=== PATIENT | male | born 1970 | race Hispanic/Latino ===

== ENCOUNTER 2018-08-04 19:55 | Inpatient (IN) | payer BC ==
[2018-08-04 21:41] LABS: #Eosinphils 0.1 thou/uL (0.0-0.7); #Lymphocytes 1.8 thou/uL (1.20-3.40); #Monocytes 0.8 thou/uL (0.11-0.59); #Neutrophils 7.9 thou/uL (1.40-6.50); %Basophils 0.2 % (0.0-1.0); %Eosinophils 0.5 % (0.0-10.0); %Lymphocytes 16.8 % (21.0-51.0); %Monocytes 7.5 % (0.0-10.0); Hemoglobin 12.6 g/dL (14.0-18.0); Mean Corpuscular HGB CONC 33.8 g/dL (32.0-36.0); Mean Corpuscular Hemoglobin 30.6 pg (27.0-31.0); Mean Corpuscular Volume 90.5 fL (78.0-98.0); Mean Platelet Volume 6.4 fL (7.4-10.4); Platelet Count 267 thou/uL (130-400); RBC Distribution Width 13.2 % (11.5-14.5); Red Blood Cell (RBC) Count 4.13 mill/uL (4.70-6.10); White Blood Cell (WBC) Count 10.6 thou/uL (4.8-10.8)
--- NOTE | 2018-08-04 21:44 | RAD ---
FOUR VIEWS RIGHT KNEE 08/04/18 HISTORY: Status post partial arthroplasty. Cellulitis. Pain persistent. FINDINGS: Right knee partial arthroplasty is noted. No evidence of perihardware lucency. No fracture. No cortic al irregularity. Joint spaces are preserved. No significant joint effusion. There does appear to be s oft tissue swelling. IMPRESSION: 1. No evidence of fracture lucency with regards to the hemiarthroplasty. 2. No evidence of joint effusion. 3. Soft tissue swelling which may represent cellulitis. Correlate clinically. POS: PPP
[2018-08-04] MEDS ORDERED: Vancomycin HCl 1.5 GM in Sodium Chloride 0.9% 250 ML 300 ML IVPB SCH (21:45)
[2018-08-04 22:03] LABS: ALT (SGPT) 20 U/L (8-55); AST (SGOT) 14 U/L (5-34); Albumin 4.2 g/dL (3.5-5.0); Alkaline Phosphatase 63 U/L (40-150); Anion Gap 12 mmol/L (10-20); BUN (Urea Nitrogen) 16 mg/dL (8.9-20.6); Bilirubin, Total 0.4 mg/dL (0.2-1.2); Calc. Creatinine Clearance 0 mL/min (70-130); Calcium 9.6 mg/dL (7.8-10.44); Carbon Dioxide 25 mmol/L (22-29); Chloride 104 mmol/L (98-107); Estimated GFR-MDRD Greater than 90; Globulin 3.1 g/dL (2.4-3.5); Glucose 99 mg/dL (70-105); Potassium 3.6 mmol/L (3.5-5.1); Protein, Total 7.3 g/dL (6.0-8.3); Sodium 137 mmol/L (136-145)
[2018-08-04] MEDS ORDERED: diphenhydrAMINE 50 MG/ML VIAL ONE (23:08)
[2018-08-04] MEDS ORDERED: Ondansetron PF 4 MG/2 ML Vial IVP PRN (23:33)
[2018-08-04] MEDS ORDERED: Ondansetron ODT 4 MG TAB SL PRN (23:33)
[2018-08-04] MEDS ORDERED: Acetaminophen 325 MG TAB PO PRN (23:33)
[2018-08-04 23:43] VITALS: BMI 37.3
[2018-08-05] MEDS: Sodium Chloride 0.9% 1,000 ML IV SCH ×2 (00:59→09:29)
[2018-08-05] MEDS: diphenhydrAMINE 25 MG CAP PO PRN (01:14)
[2018-08-05] MEDS ORDERED: Ibuprofen 200 MG TAB PO PRN (01:45)
[2018-08-05] MEDS ORDERED: Dextrose 50% Abboject 50 ML SYRINGE SLOW IVP PRN (03:21)
[2018-08-05] MEDS ORDERED: Dextrose 5% in Water 1,000 ML IV PRN (03:21)
[2018-08-05] MEDS ORDERED: HumaLOG 300 UNITS/3 ML VIAL SC PRN ×2 (03:21)
[2018-08-05 04:16] LABS: #Eosinphils 0.1 thou/uL (0.0-0.7); #Lymphocytes 1.6 thou/uL (1.20-3.40); #Monocytes 0.8 thou/uL (0.11-0.59); %Basophils 0.2 % (0.0-1.0); %Eosinophils 0.6 % (0.0-10.0); %Lymphocytes 15.4 % (21.0-51.0); %Monocytes 7.6 % (0.0-10.0); %Neutrophils 76.2 % (42.0-75.0); Hemoglobin 11.9 g/dL (14.0-18.0); Mean Corpuscular HGB CONC 33.1 g/dL (32.0-36.0); Mean Corpuscular Hemoglobin 30.1 pg (27.0-31.0); Mean Corpuscular Volume 91.1 fL (78.0-98.0); Mean Platelet Volume 6.6 fL (7.4-10.4); Platelet Count 261 thou/uL (130-400); RBC Distribution Width 13.2 % (11.5-14.5); Red Blood Cell (RBC) Count 3.94 mill/uL (4.70-6.10); White Blood Cell (WBC) Count 10.5 thou/uL (4.8-10.8)
--- NOTE | 2018-08-05 04:33 | HP ---
CHIEF COMPLAINT: Right leg pain and redness. HISTORY OF PRESENT ILLNESS: Mr. Garcia is a pleasant 48-year-old man, who is presenting after a sudden onset of right lower leg pain that started around 5:00 p.m. this early evening. The patient states he was wearing jeans and when he took them off, he noted an area of redness extending down the medial aspect of his right lower leg from below the knee to his mid calf. He reports having limited range of motion in the right knee, but denies any redness to the actual knee. He does report noting some warmth at the joint, but denies any pain in the knee. He underwent surgery to the knee 2 years ago. He denies having any fevers, chills, or sweats in recent days, but was noted to have a temperature in the ER and reports experiencing chills. He denies any nausea or vomiting. Denies any chest pain, palpitations, or shortness of breath. Has not had any other skin changes. Denies any trauma or injury to the knee. REVIEW OF SYSTEMS: The patient reports having itching that is well controlled with Benadryl. He states he takes Tylenol No.3 for pain and does experience itching associated with the Tylenol No. 3, but states he was able to manage it well with Benadryl. He denies having any difficulty with his breathing, tongue swelling, rash or hives associated with his analgesia. The patient has been well in the recent days with a normal appetite. No nausea or vomiting. All other systems are negative. ALLERGIES: SULFA. CURRENT MEDICATIONS: 1. Lisinopril. 2. Tylenol No. 3. 3. Metformin. 4. Atorvastatin. PAST MEDICAL HISTORY: 1. Hypertension. 2. Diabetes mellitus. 3. Hyperlipidemia. 4. Obesity. 5. Sleep apnea. PAST SURGICAL HISTORY: The patient has undergone surgery to the right knee. SOCIAL HISTORY: The patient is fully independent. Denies any tobacco use or illicit drug use or alcohol use. PHYSICAL EXAMINATION: GENERAL: The patient appears well developed, well nourished, and is in no acute distress. VITAL SIGNS: Temperature 98.9, pulse 74, respirations 18, O2 saturation 92% on CPAP, and blood pressure 135/67. HEENT: Normocephalic and atraumatic. Pupils are equal, round, and reactive to light. Sclerae are without icterus. Oropharynx clear. NECK: Supple without lymphadenopathy. LUNGS: Clear to auscultation bilaterally without any wheezes, rales, or rhonchi. CARDIAC: Regular rate and rhythm. No audible murmurs, rubs, or gallops. ABDOMEN: Soft, nontender, nondistended. Normoactive bowel sounds present. EXTREMITIES: Notable for slight erythema and soft tissue infection involving the right lower leg on the medial aspect. There is no tracking beyond the border that was drawn on presentation. The patient unable to see his leg and assess if the redness and swelling are improved, but states it feels much painful than when he first presented. He reports normal sensation. Pulses equal and strong bilaterally. NEUROLOGIC: Alert and oriented x3. SKIN: Without jaundice. No other skin abnormalities. LABORATORY DATA: White blood count 10.6, hemoglobin 12.6, hematocrit 37.4, and platelets 267. CMP unremarkable. CRP 4.84. Lactic acid 1.0. IMAGING DATA: Knee x-ray, no evidence of fracture lucency with regard to the hemiarthroplasty. No evidence of joint effusion. Soft tissue swelling which may represent cellulitis seen. IMPRESSION AND PLAN: Mr. Garcia is a very pleasant 48-year-old man, who is being admitted for right lower leg cellulitis with history of right knee surgery 2 years ago. There were seven changes for possible soft tissue swelling involving the knee. The erythema, however, and pain did not involve any, but he did experience limited range of motion on initial presentation. The patient has had clinical improvement since starting antibiotics. Apparently, his case was discussed between the ED physician and Ortho with plans to have him undergo evaluation in the morning for potential aspiration of the joint as septic joint was suspected. The patient remained stable at present with mild discomfort in the lower leg, which he rates at 6/10 in severity. We will manage with Tylenol No. 3. The nurse was concerned regarding the itching and the potential for a reaction to vancomycin. The patient did verify that he normally does experience itching that is controlled with Benadryl and associated with Tylenol No. 3. We will give ibuprofen. If no further itching, it will be safe to assume that it is reaction to the Tylenol No. 3 rather than vancomycin. At this point, he has no other allergic type reactions or anaphylaxis. Vital signs are stable and patient is clinically improved since starting antibiotics. 1. Hypertension. Resume home medications and monitor blood pressure. 2. Hyperlipidemia. Resume home medications. 3. Diabetes. Resume home medications. Continue insulin sliding scale and monitor glucose. 4. Full code status. His surrogate decision maker is his , Pat Garcia. The patient's case was discussed with Dr. Martin who agrees with the plan of care as described above. Job ID: [id number]
[2018-08-05 04:36] LABS: Anion Gap 9 mmol/L (10-20); BUN (Urea Nitrogen) 14 mg/dL (8.9-20.6); Calc. Creatinine Clearance 168 mL/min (70-130); Calcium 9.1 mg/dL (7.8-10.44); Carbon Dioxide 28 mmol/L (22-29); Chloride 106 mmol/L (98-107); Estimated GFR-MDRD Greater than 90; Glucose 120 mg/dL (70-105); Sodium 139 mmol/L (136-145)
[2018-08-05] MEDS ORDERED: Pantoprazole 40 MG VIAL IVP SCH (09:00)
[2018-08-05] MEDS: Lisinopril 20 MG TAB PO SCH (09:29)
[2018-08-05] MEDS: Famotidine 20 MG TAB PO SCH ×2 (09:29→20:34)
--- NOTE | 2018-08-05 13:03 | PRG ---
DATE OF SERVICE: 08/05/2018 SUBJECTIVE: The patient is seen and examined at the bedside. He is feeling better. His right lower extremity redness improved. OBJECTIVE: VITAL SIGNS: Blood pressure is 116/69, pulse is 94, temperature is 98.2, respirations 16, O2 saturation is 96% on room air. HEENT: His head is atraumatic and normocephalic. Eyes are PERRLA. Sclerae are nonicteric. Oral mucosa is moist. NECK: Supple. LUNGS: Clear. HEART: S1, S2 normal. ABDOMEN: Soft, nontender. EXTREMITIES: Below the right knee cellulitis with mild swelling. The area of the right knee looks relatively normal. NEUROLOGICAL: He is alert and oriented x4. There is no any motor or sensory deficit present. Cranial nerves are intact. LABORATORY DATA: White count of 10.5, hemoglobin 11.9, hematocrit 35.9, platelet count 261,000. Normal electrolytes, BUN 14, creatinine 0.89, glucose 120. C-reactive protein 5.88, up from 4.84 yesterday. Microbiology, none. IMPRESSION: 1. Right lower extremity cellulitis. 2. Hypertension. 3. Hyperlipidemia. 4. Diabetes mellitus type 2. PLAN: The patient had reaction to vancomycin. Apparently, he was treated with Benadryl and it was not really clear whether this was caused by Tylenol No.3 he was given or vancomycin use. So, I am going to start him on Keflex 500 mg every 6 hours and continue his DVT prophylaxis, his IV fluids and he should be able to go home tomorrow morning. Job ID: [id number]
[2018-08-05] MEDS: Clindamycin/D5W 900 MG in Premix Bag 1 BAG IVPB SCH (16:47)
[2018-08-05] MEDS ORDERED: Cephalexin 250 MG CAP PO SCH (18:00)
[2018-08-05] MEDS: Enoxaparin Sodium 40 MG/0.4 ML SYRINGE SC SCH (20:33)
[2018-08-05] MEDS: Atorvastatin Calcium 40 MG TAB PO SCH (20:34)
[2018-08-06] MEDS: Clindamycin/D5W 900 MG in Premix Bag 1 BAG IVPB SCH ×2 (00:42→08:43)
[2018-08-06] MEDS: Acetaminophen/Codeine 30-300mg Tablet PO PRN ×2 (06:36→19:33)
[2018-08-06] MEDS ORDERED: Acetaminophen 500 MG TAB PO PRN (07:49)
[2018-08-06] MEDS: Famotidine 20 MG TAB PO SCH ×2 (08:43→21:11)
[2018-08-06] MEDS: Lisinopril 20 MG TAB PO SCH (08:43)
--- NOTE | 2018-08-06 12:05 | ULT ---
FUltrasound Doppler duplex venous right lower extremity: 07/27/2018 HISTORY: Right lower extremity edema and erythema. TECHNIQUE: Grayscale, color-flow, and spectral analysis, of major veins of right lower extremity. FINDINGS: There is demonstration of blood flow with normal compressibility, of the bilateral common femoral, pr ofunda femoral, greater saphenous, femoral, popliteal, and posterior tibial, veins. IMPRESSION: Negative. No deep venous thrombosis of right lower extremity.
[2018-08-06 13:04] LABS: #Eosinphils 0.1 thou/uL (0.0-0.7); #Lymphocytes 1.5 thou/uL (1.20-3.40); #Monocytes 0.9 thou/uL (0.11-0.59); #Neutrophils 8.5 thou/uL (1.40-6.50); %Basophils 0.3 % (0.0-1.0); %Lymphocytes 13.6 % (21.0-51.0); %Monocytes 8.3 % (0.0-10.0); %Neutrophils 76.8 % (42.0-75.0); Hemoglobin 12.2 g/dL (14.0-18.0); Mean Corpuscular HGB CONC 32.8 g/dL (32.0-36.0); Mean Corpuscular Hemoglobin 30.7 pg (27.0-31.0); Mean Corpuscular Volume 93.6 fL (78.0-98.0); Mean Platelet Volume 8.4 fL (7.4-10.4); Platelet Count 138 thou/uL (130-400); RBC Distribution Width 13.4 % (11.5-14.5); Red Blood Cell (RBC) Count 3.97 mill/uL (4.70-6.10)
--- NOTE | 2018-08-06 13:24 | PRG ---
DATE OF SERVICE: 08/06/2018 SUBJECTIVE: The patient is seen and examined at the bedside. He is quite frustrated because he does not see much of progress and improvement in his cellulitis. He does not have much pain in the area, where just the area is hypersensitive to touch, somewhat swollen, and erythematous. OBJECTIVE: VITAL SIGNS: Blood pressure is 118/72, pulse is 62, temperature is 98.5, respirations 18, O2 saturation is 98% on room air. HEENT: His head is atraumatic, normocephalic. Eyes are PERRLA. Sclerae are nonicteric. Oral mucosa is moist. NECK: Supple. LUNGS: Clear. HEART: S1, S2 normal. No S3. No S4. No any murmur. ABDOMEN: Soft, nontender. Bowel sounds are present. No organomegaly. EXTREMITIES: His right lower extremity shows the scar over the frontal aspect of the knee and some erythematous area, which is extending from just below the knee area all the way to the right ankle. It is slightly bigger than what it was before, but it is not consistently erythematous in all areas. NEUROLOGICAL: He is alert and oriented x4. There is no any motor or sensory deficits present. Cranial nerves are intact. LABORATORY DATA: Pending. IMPRESSION: 1. Right lower extremity cellulitis below the right knee. 2. Hypertension. 3. Hyperlipidemia. 4. Diabetes mellitus type 2. PLAN AND DISCUSSION: Yesterday, Dr. Subramanian came and saw the patient and he recommended clindamycin IV. He was started on 900 mg every 8 hours IV piggyback. Today, since we did not see much improvement, we will have Dr. Preston, Infectious Disease doctor to evaluate him. We will continue clindamycin for now. Keflex was stopped, and Doppler of lower extremity did not show any DVT, and diabetes well controlled. Job ID: [id number]
--- NOTE | 2018-08-06 20:45 | CON ---
DATE OF CONSULTATION: 08/06/2018 REASON FOR CONSULTATION: Cellulitis. HISTORY OF PRESENT ILLNESS: A 48-year-old with history of type 2 diabetes, hypertension, obesity, and hyperlipidemia, who had right knee TKR a few days ago and developed inflammatory changes in right leg, which developed suddenly on the evening of admission. On arrival, his BP was 130/60, temperature normal, and pulse 74. The exam was remarkable for the inflammatory changes in right leg with erythema. Ultrasound showed no evidence of deep vein thrombosis. CRP was 4.84, WBC count 10.6, and lactic acid 1.0. The patient was given vancomycin and Rocephin and had hives, which were felt to be due to vancomycin and then he was given clindamycin. Currently, he is feeling better. There is less tenderness in the right leg. There were some questions regarding extension of the erythema area. No headaches, visual symptoms, sore throat, odynophagia, or dysphagia. No cough or sputum production. No chest pain or back pain. No chest pain. No abdominal pain or diarrhea. No genitourinary symptoms. No other joint symptoms. Right knee TKR site without any pain. No neurological symptoms. PAST MEDICAL HISTORY: Obesity, hyperlipidemia, hypertension, type 2 diabetes. He also has a history of sleep apnea. ALLERGY HISTORY: Sulfa drugs. PAST SURGICAL HISTORY: Recent right TKR. SOCIAL HISTORY: He is works as an principal hardware architect. . Never smoker. Does not drink alcoholic beverage. FAMILY HISTORY: Noncontributory. PHYSICAL EXAMINATION: VITAL SIGNS: T-max 99, blood pressure 118/72, pulse 62, respirations 18, and O2 saturation 98%. SKIN: Shows a quite faint erythema in the right leg medial aspect wrapping around the calf. Not much tenderness noted. No petechia or purpura. No blistering. The right TKR site is healed and no erythema or tenderness. LYMPH: No lymphadenopathy. HEENT: Normal. NECK: Supple. LUNGS: Symmetric clear breath sounds. HEART: S1 and S2. Regular rate without murmurs. ABDOMEN: Soft, not distended or tender. No ascites. No bladder distention. GENITAL: Normal. No other joint inflammatory process. Pulses are 1+ in dorsalis pedis. Moves extremities equally. Plantar response are flexor. No clonus. His cognitive function appears to be perfectly fine. LABORATORY DATA: White cell count is 10.6 and 11 and platelets 138 with 76% neutrophils. Chemistry is normal. Glucose 120. CRP is 5.88. MEDICATIONS: He is currently on; 1. Clindamycin. 2. Lisinopril. 3. Insulin. 4. Ibuprofen. ASSESSMENT: Type 2 diabetes, recent total knee replacement with cellulitis of right leg, with some worsening neutrophilia, which is mild. DISCUSSION: Most cases of cellulitis in the lower extremity are secondary to beta-hemolytic streptococci. In his case, there is no other risk factors that would increase the risk of gram-negative homero cellulitis. We will switch him to cefazolin and monitor through to tomorrow. If he continues to improve, then discontinue on oral Keflex for 10 to 14 days and then suppressive penicillin VK with compression stockings. I discussed with the patient the risk of seeding of the right TKR site and the if he develops decreased range of motion with pain in the in the right knee, then he would have to be evaluated for TKR infection. Job ID: [id number]
[2018-08-06] MEDS: Atorvastatin Calcium 40 MG TAB PO SCH (21:10)
[2018-08-06] MEDS: diphenhydrAMINE 25 MG CAP PO PRN (21:10)
[2018-08-06] MEDS: Enoxaparin Sodium 40 MG/0.4 ML SYRINGE SC SCH (21:11)
[2018-08-06] MEDS: CEFAZOLIN 2 GM in Premix Bag 1 BAG IVPB SCH (21:13)
[2018-08-07] MEDS: CEFAZOLIN 2 GM in Premix Bag 1 BAG IVPB SCH ×3 (05:19→21:32)
[2018-08-07] MEDS: Lisinopril 20 MG TAB PO SCH (09:18)
[2018-08-07] MEDS: Famotidine 20 MG TAB PO SCH ×2 (09:18→21:30)
--- NOTE | 2018-08-07 15:33 | PRG ---
DATE OF SERVICE: 08/07/2018 SUBJECTIVE: The patient is doing somewhat better. He noticed some improvement of his cellulitis. OBJECTIVE: VITAL SIGNS: Blood pressure is 116/72, pulse is 72, temperature is 98.2. He did not have any temperature overnight. Respiratory rate is 16 and O2 saturation 95% on room air. HEENT: Head is atraumatic and normocephalic. Eyes are PERRLA. Sclerae are nonicteric. Oral mucosa is moist. NECK: Supple. LUNGS: Clear. HEART: S1 and S2 normal. No S3. No S4. ABDOMEN: Soft and nontender. Bowel sounds are present. No organomegaly. EXTREMITIES: Right lower extremity shows some erythematous changes in his [id number] right lower extremity area, which showed some extension beyond the markings done yesterday, but it showed also clearing of the central part of the erythematous area. NEUROLOGIC: He is alert and oriented x4. There is no any sensory or motor deficits present. Cranial nerves are intact. LABORATORY DATA: None today. IMPRESSION: 1. Cellulitis of the right lower extremity below the knee in the setting of the patient who had multiple surgeries on his right knee. 2. Hypertension. 3. Hyperlipidemia. 4. Diabetes mellitus type 2. DISCUSSION: The patient was seen by Dr. Preston yesterday for ID evaluation. He put him on a cefazolin IV piggyback 2 g every 8 hours and discontinued clindamycin. There is some improvement, but not to the point that we would discharge him. He is willing to stay additional day just to receive more IV antibiotic treatment. The patient required multiple changes of antibiotics and he required ID consultation and he is quite resistant to the treatments we offered and that is why his observation status was changed to inpatient and he is receiving DVT prophylaxis. We just suspect that he might have lymphangitis in this area. We are watching for any signs of infection of his hardware in the right knee. Job ID: [id number]
[2018-08-07] MEDS: Enoxaparin Sodium 40 MG/0.4 ML SYRINGE SC SCH (21:30)
[2018-08-07] MEDS: Atorvastatin Calcium 40 MG TAB PO SCH (21:30)
[2018-08-07] MEDS: Acetaminophen/Codeine 30-300mg Tablet PO PRN (21:50)
[2018-08-08] MEDS: CEFAZOLIN 2 GM in Premix Bag 1 BAG IVPB SCH (05:51)
[2018-08-08 07:36] VITALS: BP 109/61; TEMP 98.3
[2018-08-08] MEDS: Famotidine 20 MG TAB PO SCH (07:51)
[2018-08-08] MEDS: Lisinopril 20 MG TAB PO SCH (07:51)
--- NOTE | 2018-08-08 13:54 | DIS ---
DATE OF ADMISSION: 08/04/2018 DATE OF DISCHARGE: 08/08/2018 DISCHARGE DIAGNOSES: 1. Right lower extremity cellulitis below the knee area. 2. Hypertension. 3. Hyperlipidemia. 4. Diabetes mellitus, type 2. CONSULTANTS: 1. Dr. Andrea Preston, Infectious Disease. 2. Dr. Subramanian, Orthopedic Surgery. HOSPITAL COURSE: The patient was a 48-year-old male with past medical history of hypertension, hyperlipidemia, and diabetes mellitus, who presented to the hospital with right leg pain and redness. Denied any fever, chills, or sweats in the recent days. He denied any nausea or vomiting. Denied any chest pain, palpitations, or shortness of breath. He denies any trauma or injury to the knee. Medical history is positive for multiple surgeries on his right knee and in the emergency room, his white count was 10.6, hemoglobin 12.6, hematocrit 37.4, and platelet count 267,000. ENVIRONMENTAL SYSTEMS COORDINATOR was unremarkable. CRP was 4.84. Lactic acid was 1.0. X-ray of the right and knee showed no evidence of fracture. There was no evidence of joint effusion and soft tissue swelling was representing cellulitis, which was seen on clinical presentation. He got admitted to the hospital, started on he had some reaction which was questionable whether this was caused by vancomycin or not in the emergency room. He was treated with Benadryl and today, he was seen by Dr. Subramanian, who recommended clindamycin. He was placed on clindamycin, but did not improve much, so the next day, ID cost consultant came and started him on Ancef. He was admitted on observation originally, but it was switched to full admissions since he required multiple different antibiotics and there was not much improvement with some of them. Finally, he responded to Ancef and he looks good today. His redness is almost completely gone. He is feeling good. He does not have much fever. He had low-grade temperature during this hospitalization. PHYSICAL EXAMINATION: VITAL SIGNS: Temperature today is 98.3, pulse is 72, blood pressure 109/61, O2 saturation is 95% on room air, and his respirations are 16. LUNGS: Clear. HEART: S1 and S2 normal. No S3. No S4. No any murmur. EXTREMITIES: In the right lower extremity, erythema is almost completely gone. There is still some residual redness and some residual swelling, but it is 80% better. DISCHARGE INSTRUCTIONS: He is discharged home with recommendation to stay on diabetic diet, 2000 calories. Activities as tolerated. DISPOSITION: Home. DISCHARGE MEDICATIONS: His home medications at the time of discharge; 1. Lisinopril 20 mg once a day. 2. Tylenol with Codeine 1 tablet to 2 tablets every 6 hours p.r.n. as needed. 3. Metformin 500 mg every evening. 4. Atorvastatin 40 mg at bedtime. 5. Keflex 500 mg 4 times a day for the next 10 days. He will need penicillin VK, after that post suppression therapy. According to Dr. Preston, Infectious Disease cost consultant recommendations and that he will receive prescription from his primary care physician. He needs to see his primary care physician in 1 week as a followup visit postdischarge. He is in good condition and the discharge time is less than 30 minutes. Job ID: [id number]
--- NOTE | 2018-08-10 07:52 | PQF ---
BRITTANY LEE ZBIGNIEW A MD [id number] ONC-[id number] CLINICAL DOCUMENTATION CLARIFICATION FORM: POST DISCHARGE Addendum to original discharge summary date: ____ Late entry note date: __ DATE: 08/10/18 ATTN: Francisco Fitzgerald Can you please specify if Cellulitis is a complication or not of recent surgery? Please check appropriate box(s): [ ] Cellulitis is a complication of current/recent surgery (TKA) [ ] Cellulits is not a complication of current/recent surgery (TKA) [ ] Other diagnosis please specify: [ ] Unable to determine CLINICAL INDICATORS - SIGNS / SYMPTOMS / LABS H and P pg.1 08/04 Dr. Tran- right leg pain and redness H and P pg.2 08/04 Dr. Tran- patient undergone surgery to the right knee H and P pg.1 08/04 Dr. Tran- admitted for right lower leg cellulitis with history of right knee surgery 2 years ago Consult pg.1 08/06 Dr. Preston- recent total knee replacement with cellulitis of right leg, with some worsening neutrophilia which is mild PN pg. 08/06 Dr. Fitzgerald- Impression: Right lower extremity cellulitis below the right knee". PN pg.1 08/07 Dr. Fitzgerald- cellulitis of the right lower extremity below the knee in settings of the patient who had multiple surgeries on his right knee Consult Consult pg.1 05/08 Dr. Preston HPI:.. who had right knee TKR a few days ago and developed inflammatory changes in right leg, which developed suddenly on the evening of admission RISK FACTORS Hypertention- H and P pg.1 08/04 Dr. Tran Obesity- H and P pg.1 08/04 Dr. Tran Diabetes Mellitus- H and P pg.1 08/04 Dr. Tran Right lower extremity cellulitis- PN pg1 08/05 Dr. Fitzgerald Multiple surgeries on his right knee- PN pg.1 08/07 Dr. Fitzgerald Recent TKA Consult Dr. Preston TREATMENT: Knee Xray 08/04/[address] Fitzgerald 08/06/18 Vancomycin 300ml IVPB-08/04/2018 Clindamycin 900mg IVBP-08/05/2018 Cephalexin 500mg PO-08/05/2018 Infectious Disease Consult by Dr. Andrea Preston 08/06/2018 [employer] Winform Viewer (This form is maintained as a part of the permanent medical record) 2014 [employer] All Rights Reserved Derrick [email or web address] [not provided] [email or web address]
== END 2018-08-08 12:09 | disposition home or self-care (01) | DRG 603 ==
LOC: ERS 19:55 → OBSVTOIN 23:29 → ONC 23:29
PROVIDERS: ADMIT Family Medicine; ATTEND Family Medicine
DX: L03.115 Cellulitis of right lower limb (principal); I10 Essential (primary) hypertension; E11.9 Type 2 diabetes mellitus without complications; E66.9 Obesity, unspecified; E78.00 Pure hypercholesterolemia, unspecified; G47.30 Sleep apnea, unspecified; Z96.651 Presence of right artificial knee joint; Z88.2 Allergy status to sulfonamides; Z79.84 Long term (current) use of oral hypoglycemic drugs; Z79.899 Other long term (current) drug therapy; Z68.37 Body mass index [BMI] 37.0-37.9, adult; L50.0 Allergic urticaria; T36.8X5A Adverse effect of other systemic antibiotics, initial encounter
CPT/HCPCS: 36415; 80048; 80053; 83605; 85025; 85652; 86140; 96361; 96365; 96375; J0690; J1200; J1650; J3370; J3490; J7050; Q0163